=== PATIENT | male | born 1955 | race Two or more races ===

== ENCOUNTER → 2024-04-01 | Emergency (ER) | payer SELFPAY ==
[~2024-04-01] VITALS: Ht 177.8 cm; Wt 74.8 kg
[2024-04-01 17:37] VITALS: BP 111/77; TEMP 98; O2SAT 96
== END | disposition left against medical advice (07) ==
LOC: ER 18:42
DX: F10.129 Alcohol abuse with intoxication, unspecified (principal); Z53.21 Procedure and treatment not carried out due to patient leaving prior to being seen by health care provider; Z59.00 Homelessness unspecified; Y90.9 Presence of alcohol in blood, level not specified